=== PATIENT | female | born 2000 | race Caucasian/White ===

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

== ENCOUNTER → 2019-12-30 | Outpatient (CLI) | payer SELFPAY | END | disposition home or self-care (01) | LOC: LABWHC1 08:26 | PROVIDERS: ATTEND Family Medicine | DX: Z20.828 Contact with and (suspected) exposure to other viral communicable diseases (principal) ==

== ENCOUNTER 2020-11-30 12:39 | Day surgery (SDC) | payer MEDICAID, OTHER ==
[2020-11-25 12:55] VITALS: BMI 23.6
[~2020-11-30 12:39] MED LIST: ONDANSETRON 4 MG/2 ML VIAL IVP PRN
[2020-11-30] MEDS: LACTATED RINGERS 1,000 ML IV SCH ×2 (13:02→13:17)
[2020-11-30 13:14] VITALS: TEMP 98.3
[2020-11-30] MEDS ORDERED: LIDOCAINE 1% (10MG/ML) FOR IV START INTRADERMA ONE (13:17)
[2020-11-30] MEDS ORDERED: PROPOFOL 10 MG/ML 20 ML VIAL IV ONE (13:22)
--- NOTE | 2020-11-30 14:08 | P.OP ---
Date of Procedure: 11/30/20 Preoperative Diagnosis: GI bleeding Postoperative Diagnosis: Gastrits Procedure(s) Performed: EGD with biopsy and colonoscopy Anesthesia: SYLVIA Surgeon: Sin Ndiaye Estimated Blood Loss (ml): 2 Condition: stable Disposition: PACU Description of Procedure: Patient is brought Endo suite placed in left lateral decubitus position underwent sedation per department of anesthesia prepped and draped in usual sterile fashion timeout performed correct patient correct procedure correct site was verified scope was passed from the oropharynx down the esophagus under direct visualization and the stomach first portion and second portion of the duodenum the slowly withdrawn being sure to visualize all the duodenum biopsy was taken there was no gross abnormalities no ulcer seen and duodenum the scope was withdrawn antrum there was gastritis within the antrum and body and wall the stomach there was no discrete ulcers or signs of bleeding. All madrigal and body of stomach were inspected and scope was retroflexed no significant hiatal hernia was noted. Scope was withdrawn after taking antral biopsy to the GE junction were random biopsies taken to rule out Moran's scope was then slowly withdrawn to the esophagus no other abnormalities are noted patient tolerated this well she was then turned rectal exam was performed no gross abnormalities were noted no hemorrhoids were noted scope was passed from the rectum to the cecum with ease it was passed into her terminal ileum biopsy was taken there was no inflammation noted ascending colon random biopsies taken as the scope was slowly withdrawn being sure to visualize all madrigal of the colon on the way out there was also random transverse colon biopsy taken. Scope was then withdrawn to the rectum and no other abnormalities were noted it was retroflexed no gross abnormalities are noted patient tolerated the procedure well there are no apparent complications
[2020-11-30 14:23] VITALS: BP 115/78; PULSE 69; RESP 18
== END 2020-11-30 14:34 | disposition home or self-care (01) ==
LOC: ORWHC2ENDO 12:39
PROVIDERS: ATTEND Student in an Organized Health Care Education/Training Program
DX: K29.50 Unspecified chronic gastritis without bleeding (principal); K21.00 Gastro-esophageal reflux disease with esophagitis, without bleeding; R00.2 Palpitations; Z87.891 Personal history of nicotine dependence; F32.9 Major depressive disorder, single episode, unspecified; Z79.3 Long term (current) use of hormonal contraceptives; Z88.6 Allergy status to analgesic agent; Z88.1 Allergy status to other antibiotic agents
CPT/HCPCS: 81025; 88305; 45380; 43239; J2704

== ENCOUNTER → 2021-08-24 | Outpatient (CLI) | payer BC | END | disposition home or self-care (01) | LOC: LABWHC1 15:52 | PROVIDERS: ATTEND Obstetrics & Gynecology | DX: O20.0 Threatened abortion (principal) | CPT/HCPCS: 36415; 84702 ==